=== PATIENT | male | born 1990 | race Caucasian/White ===

== ENCOUNTER 2025-01-23 00:28 | Inpatient (IN) | payer SELFPAY ==
[2025-01-23] VITALS (7 sets, daily range): BP systolic 111–150; BP diastolic 66–83; PULSE 89–119; RESP 16–18; TEMP 36.3–37.2; O2SAT 95–99; BMI 27.1
--- OUTSIDE RECORDS SUMMARY | 2025-01-23 00:36 | XMS_ITS | Encounter Summary ---
Author Organization [facility] Address [address] [place] [address] Care Team Providers Care Automation And Controls Supervisor Name Role Phone Alo Yost DO Primary Care Provider [phone] Encounter Details Date Type Department Care Team (Latest Contact Info) Description 02/14/2001 Outpatient Historical [facility] [address] [place] [address] Raoul Mcdaniel MD NO ADDRESS ON FILE ACUTE URI NOS (Primary Dx) Social History Tobacco Use Types Packs/Day Years Used Date Smoking Tobacco: Never Assessed Sex and Gender Information Value Date Recorded Sex Assigned at Not on file 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
--- OUTSIDE RECORDS SUMMARY | 2025-01-23 00:36 | XMS_ITS | Encounter Summary ---
Author Organization [facility] Address [address] [place] [address] Care Team Providers Care Residential Roofer Name Role Phone Alo oYst DO Primary Care Provider [phone] Encounter Details Date Type Department Care Team (Latest Contact Info) Description 07/02/1998 Outpatient Historical [facility] [address] [place] [address] Raoul Mcdaniel MD NO ADDRESS ON FILE Routine child health exam (Primary Dx) Social History Tobacco Use Types Packs/Day Years Used Date Smoking Tobacco: Never Assessed Sex and Gender Information Value Date Recorded Sex Assigned at Not on file 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
--- OUTSIDE RECORDS SUMMARY | 2025-01-23 00:36 | XMS_ITS | Encounter Summary ---
Author Organization [facility] Address [address] [place] [address] Care Team Providers Care Direct Sales Professional Name Role Phone Alo Yost DO Primary Care Provider [phone] Encounter Details Date Type Department Care Team (Latest Contact Info) Description 03/15/2001 Outpatient Historical [facility] [address] [place] [address] Raoul Mcdaniel MD NO ADDRESS ON FILE CONJUNCTIVITIS NOS (Primary Dx) Social History Tobacco Use Types Packs/Day Years Used Date Smoking Tobacco: Never Assessed Sex and Gender Information Value Date Recorded Sex Assigned at Not on file 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
--- OUTSIDE RECORDS SUMMARY | 2025-01-23 00:36 | XMS_ITS | Encounter Summary ---
Author Organization [facility] Address [address] [place] [address] Care Team Providers Care Inside Phone Sales Name Role Phone Alo Yost DO Primary Care Provider [phone] Encounter Details Date Type Department Care Team (Latest Contact Info) Description 03/16/1998 Outpatient Historical [facility] [place] [address] [place] [id number] Andrew Anthony MD NO ADDRESS ON FILE Acute nonsup otitis media (Primary Dx) Social History Tobacco Use Types Packs/Day Years Used Date Smoking Tobacco: Never Assessed Sex and Gender Information Value Date Recorded Sex Assigned at Not on file 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
--- OUTSIDE RECORDS SUMMARY | 2025-01-23 00:36 | XMS_ITS | Clinical Summary ---
Author Organization [facility] Address [address] [place] [address] Phone Care Team Providers Care Precision Agriculture Specialist Name Role Phone Alo Yost DO Primary Care Provider [phone] Allergies No known active allergies Medications busPIRone (BUSPAR) 10 mg tablet Take 1 Tablet (10 mg) by mouth 2 times daily. 60 Tablet 2 08/07/2015 Active escitalopram oxalate (LEXAPRO) 10 mg tablet Take 1 Tablet (10 mg) by mouth daily. 30 Tablet 1 08/07/2015 Active traZODone (DESYREL) 100 mg tablet Take 1 Tablet (100 mg) by mouth daily at bedtime. 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, severe 08/16/2015 Tobacco use 08/07/2015 History of substance abuse 08/07/2015 Immunizations Immunization Administration Dates Next Due (M-M-R II/PRIORIX)(12 MO UP) MEASLES, MUMPS AND RUBELLA VIRUS VACCINE, 0.5 ML IM/SUBCUT 05/23/1996,01/23/1992 Dt Dtp Dtap Vaccine 09/08/2006, 7,01/23/1992,1991,02/14/1991,1990 HIB, Unspecified Formulation 01/23/1992, 05/19/1991,02/14/1991,1990 Hepatitis B Vaccine 02/15/1997,07/25/1996,1996 IPV/OPV 05/23/1996, 2,02/14/1991,1990 Family History Medical History Relation Name Comments Healthy Father Healthy Maternal Grandfather Healthy Maternal Grandmother Healthy Mother Osteoporosis Paternal Grandfather Healthy Paternal Grandmother Healthy Sister Relation Name Status Comments Father Maternal Grandfather Maternal Grandmother Mother Paternal Grandfather Paternal Grandmother Sister Social History Tobacco Use Types Packs/Day Years Used Date Smoking Tobacco: Every Day Cigarettes 0.5 6 Smokeless Tobacco: Never Tobacco Cessation:Counseling Given: No Alcohol Use Standard Drinks/Week Comments Yes 0 (1 standard drink = 0.6 oz pur e alcohol) 1-2 beers month Sex and Gender Information Value Date Recorded Sex Assigned at Not on file 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 Gender Identity Not on file Sexual Orientation Not on file Last Filed Vital Signs Vital Sign Reading Time Taken Comments Blood Pressure 121/75 08/19/2015 10:00 AM CDT Pulse 70 08/19/2015 10:00 AM CDT Temperature 36.7 C (98 F) 08/19/2015 10:00 AM CDT Respiratory Rate 20 08/19/2015 10:0 0 AM CDT Oxygen Saturation 100% 08/19/2015 10: 00 AM CDT Inhaled Oxygen Concentration - - Weight 82.9 kg (182 lb 12.8 oz) 08/18/2015 8:00 AM CDT Height 182.9 cm (6') 08/15/2015 9:16 PM CDT Body Mass Index 24.79 08/15/2015 9:16 PM CDT Plan of Treatment Health Maintenance Due Date Last Done Comments DTAP/TDAP/TD VACCINES (7 - Tdap) 09/08/2016 09/08/2006, 05/23/1996, 01/23/1992, Additional history exists INFLUENZA VACCINE (#1) 2024 HEPATITIS B VACCINES Completed 02/15/1997, 07/25/1996, 05/23/1996 HPV VACCINES (No Doses Required) Completed Insurance CIG[employer] OPEN ACCESS PLUS CIGNA OPEN ACCESS PLUS CIGNA OPEN ACCESS PLUS Advance Directives For more information, please contact: [phone] * Full Code (Latest Code Status on File) Date Activated Date Inactivated Comments 08/15/2015 9:05 PM 08/19/2015 2:44 PM Care Teams Precision Agriculture Specialist Relationship Specialty Start Date End Date Alo Yost DO PCP - General Family Practice 07/09/15
--- OUTSIDE RECORDS SUMMARY | 2025-01-23 00:36 | XMS_ITS | Encounter Summary ---
Author Organization [facility] Address [address] [place] [address] Care Team Providers Care Cost Accounting Analyst Name Role Phone Alo Yost DO Primary Care Provider [phone] Encounter Details Date Type Department Care Team (Latest Contact Info) Description 07/15/1998 Outpatient Historical [facility] Ear, Nose and Throat 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
--- OUTSIDE RECORDS SUMMARY | 2025-01-23 00:36 | XMS_ITS | Encounter Summary ---
Author Organization [facility] Address [address] [place] [address] Care Team Providers Care Representative Government Relations Name Role Phone Alo Yost DO Primary Care Provider [phone] Encounter Details Date Type Department Care Team (Latest Contact Info) Description 11/22/1998 Outpatient Historical [facility] [address] [place] [address] Lavelle Saleh MD NO ADDRESS ON FILE Croup (Primary Dx) Social History Tobacco Use Types Packs/Day Years Used Date Smoking Tobacco: Never Assessed Sex and Gender Information Value Date Recorded Sex Assigned at Not on file 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
--- OUTSIDE RECORDS SUMMARY | 2025-01-23 00:36 | XMS_ITS | Encounter Summary ---
Author Organization [facility] Address [address] [place] [address] Care Team Providers Care Mixing And Molding Machine Operator Name Role Phone Alo Yost DO Primary Care Provider Encounter Details Date Type Department Care Team (Latest Contact Info) Description 08/15/1998 Outpatient Historical [facility] Head and Neck Surgery-[address] [place] [phone] [address] [place], [place] [address] Chronic tonsillitis and adenoiditis(474.02) (Primary Dx); Hypertrophy tonsils/adenoids Social History Tobacco Use Types Packs/Day Years Used Date Smoking Tobacco: Never Assessed Sex and Gender Information Value Date Recorded Sex Assigned at Not on file 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
--- OUTSIDE RECORDS SUMMARY | 2025-01-23 00:36 | XMS_ITS | Encounter Summary ---
Author Organization [facility] Address [address] [place] [address] Care Team Providers Care Tipple Boss Name Role Phone Alo Yost DO Primary Care Provider [phone] Encounter Details Date Type Department Care Team (Latest Contact Info) Description 05/01/2000 Outpatient Historical [facility] Imaging Services-[place] [address] [place] [address] Raoul Mcdaniel MD NO ADDRESS ON FILE Injury, other and unspecified, unspecified site (Primary Dx) Social History Tobacco Use Types Packs/Day Years Used Date Smoking Tobacco: Never Assessed Sex and Gender Information Value Date Recorded Sex Assigned at Not on file 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
--- OUTSIDE RECORDS SUMMARY | 2025-01-23 00:36 | XMS_ITS | Encounter Summary ---
Author Organization [facility] Address [address] [place] [address] Care Team Providers Care Motor And Chassis Inspector Name Role Phone Alo Yost DO Primary Care Provider [phone] Encounter Details Date Type Department Care Team (Latest Contact Info) Description 08/26/1998 Outpatient Historical [facility] Ear, Nose and Throat 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
--- OUTSIDE RECORDS SUMMARY | 2025-01-23 00:36 | XMS_ITS | Encounter Summary ---
Author Organization [facility] Address [address] [place] [address] Care Team Providers Care Ball Assembler Name Role Phone Alo Yost DO Primary Care Provider [phone] Encounter Details Date Type Department Care Team (Latest Contact Info) Description 11/02/2013 Ancillary Orders [facility] Imaging Services [address] [place] [address] [place] [address] [address] Dyspnea (Primary Dx); Chest congestion Social History Tobacco Use Types Packs/Day Years Used Date Smoking Tobacco: Never Assessed Sex and Gender Information Value Date Recorded Sex Assigned at Not on file 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 Exam: XR CHEST PA AND LATERAL Date/Time of Exam: Nov 02, 2013 05:25:52 PM Reason For Exam: Other dyspnea and respiratory abnormality. Findings: The heart size is normal. Calcified granulomas are noted. Small airspace opacity in the right upper lobe is noted concerning for a subtle infiltrate. The left lung is clear and there is no effusion or pneumothorax. Impression: 1. Subtle airspace opacity right upper lobe. Please see above. Justo - uploaded from [facility] - Narrative Procedure Note Constanza Gabriel MD - 11/03/2013 IMPRESSION IMPRESSION: See report below. Exam: XR CHEST PA AND LATERAL Date/Time of Exam: Nov 02, 2013 05:25:52 PM Reason For Exam: Other dyspnea and respiratory abnormality. Findings: The heart size is normal. Calcified granulomas are noted. Small airspace opacity in the right upper lobe is noted concerning for a subtle infiltrate. The left lung is clear and there is no effusion or pneumothorax. Impression: 1. Subtle airspace opacity right upper lobe. Please see above. Justo - uploaded from [facility] - Kamaljit Aquino MD DIAGNOSTIC IMAGING ORDERAB LES Final Result documented in this encounter Visit Diagnoses Diagnosis Dyspnea- Primary Other dyspnea and respiratory abnormality Chest congestion Other symptoms involving respiratory system and chest Dyspnea Other dyspnea and respiratory abnormality Chest congestion Other symptoms involving respiratory system and chest documented in this encounter Care Teams Ball Assembler Relationship Specialty Start Date End Date Alo Yost DO PCP - General Family Practice 07/09/15 documented as of this encounter
--- OUTSIDE RECORDS SUMMARY | 2025-01-23 00:36 | XMS_ITS | Encounter Summary ---
Author Organization [facility] Address [address] [place] [address] Care Team Providers Care Sales Commissions Analyst Name Role Phone Alo Yost DO Primary Care Provider [phone] Encounter Details Date Type Department Care Team (Latest Contact Info) Description 05/01/2000 Outpatient Historical [facility] [place] [address] [place] [address] Raoul Mcdaniel MD NO ADDRESS ON FILE Cellulitis and abscess of upper arm and forearm (Primary Dx) Social History Tobacco Use Types Packs/Day Years Used Date Smoking Tobacco: Never Assessed Sex and Gender Information Value Date Recorded Sex Assigned at Not on file 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
--- OUTSIDE RECORDS SUMMARY | 2025-01-23 00:36 | XMS_ITS | Encounter Summary ---
Author Organization [facility] Address [address] [place] [address] Care Team Providers Care Curing Press Operator Name Role Phone Alo Yost DO Primary Care Provider [phone] Encounter Details Date Type Department Care Team (Latest Contact Info) Description 11/07/2013 Ancillary Orders [facility] Pre-Registration [place] CALL TO MAKE APPOINTMENT ONLY [address] [place] [address] Kamaljit Aquino MD [address] [address] Pneumonia (Primary Dx) Social History Tobacco Use Types Packs/Day Years Used Date Smoking Tobacco: Never Assessed Sex and Gender Information Value Date Recorded Sex Assigned at Not on file 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
--- OUTSIDE RECORDS SUMMARY | 2025-01-23 00:36 | XMS_ITS | Encounter Summary ---
Author Organization [facility] Address [address] [place] [address] Care Team Providers Care Mathematics Education Professor Name Role Phone Alo Yost DO Primary Care Provider [phone] Encounter Details Date Type Department Care Team (Latest Contact Info) Description 11/28/2013 Ancillary Orders [facility] Pre-Registration [place] CALL TO MAKE APPOINTMENT ONLY [address] [place] [address] [place] [address] [address] Chronic cough (Primary Dx) Social History Tobacco Use Types Packs/Day Years Used Date Smoking Tobacco: Never Assessed Sex and Gender Information Value Date Recorded Sex Assigned at Not on file 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 Exam: XR CHEST PA AND LATERAL Date/Time of Exam: Dec 29, 2013 01:49:21 PM Reason For Exam: Cough. The heart and mediastinum are normal in size and contour. The lungs are essentially clear without evidence of infiltrates, nodules, or effusions. The bones and other structures visualized are largely unremarkable. The study shows clearing of the right upper lobe opacity since November 02. Impression: No active disease. Narrative Procedure Note Antony Singleton MD - 12/29/2013 IMPRESSION IMPRESSION: See report below. Exam: XR CHEST PA AND LATERAL Date/Time of Exam: Dec 29, 2013 01:49:21 PM Reason For Exam: Cough. The heart and mediastinum are normal in size and contour. The lungs are essentially clear without evidence of infiltrates, nodules, or effusions. The bones and other structures visualized are largely unremarkable. The study shows clearing of the right upper lobe opacity since November 02. Impression: No active disease. us Kamaljit Aquino MD DIAGNOSTIC IMAGING ORDERAB LES Final Result documented in this encounter Visit Diagnoses Diagnosis Chronic cough- Primary Cough Chronic cough Cough documented in this encounter Care Teams Mathematics Education Professor Relationship Specialty Start Date End Date Alo Yost DO PCP - General Family Practice 07/09/15 documented as of this encounter
--- OUTSIDE RECORDS SUMMARY | 2025-01-23 00:36 | XMS_ITS | Encounter Summary ---
Author Organization [facility] Address [address] [place] [address] Care Team Providers Care Executive Chairman Name Role Phone Alo Yost DO Primary Care Provider [phone] Encounter Details Date Type Department Care Team (Latest Contact Info) Description 02/11/2000 Outpatient Historical [facility] [address] [place] [address] Raoul Mcdaniel MD NO ADDRESS ON FILE Acute sinusitis, unspecified (Primary Dx) Social History Tobacco Use Types Packs/Day Years Used Date Smoking Tobacco: Never Assessed Sex and Gender Information Value Date Recorded Sex Assigned at Not on file 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
--- OUTSIDE RECORDS SUMMARY | 2025-01-23 00:36 | XMS_ITS | Encounter Summary ---
Author Organization [facility] Address [address] [place] [address] Care Team Providers Care Cinder Snapper Name Role Phone Alo Yost DO Primary Care Provider [phone] Encounter Details Date Type Department Care Team (Latest Contact Info) Description 06/25/1998 Outpatient Historical [facility] [address] [place] [address] Raoul Mcdaniel MD NO ADDRESS ON FILE Streptococcal sore throat (Primary Dx) Social History Tobacco Use Types Packs/Day Years Used Date Smoking Tobacco: Never Assessed Sex and Gender Information Value Date Recorded Sex Assigned at Not on file 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
--- OUTSIDE RECORDS SUMMARY | 2025-01-23 00:36 | XMS_ITS | Encounter Summary ---
Author Organization [facility] Address [address] [place] [address] Care Team Providers Care Pet Sitting Name Role Phone Alo Yost DO Primary Care Provider [phone] Encounter Details Date Type Department Care Team (Latest Contact Info) Description 08/14/[address] [facility] 

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
[2025-01-23] MEDS: LORazepam 2 mg/mL INJ 1 mL IM (01:07)
[2025-01-23] MEDS: diphenhydrAMINE 50 mg/mL SDV 1mL IM (01:07)
[2025-01-23 01:19] LABS: Hematocrit 47.1 % (37-53); Hemoglobin 16.30 g/dL (11.27-16.99); Mean Corpuscular HGB Conc 34.6 g/dL (30-55); Mean Corpuscular Hemoglobin 29.0 pg (27-33); Mean Corpuscular Volume 83.8 fl (82-101); Nucleated Red Blood Cells % 0 %; Platelet Count 315 10^3/cmm (157-399); Red Blood Count 5.62 10^6/uL (3.85-5.65); White Blood Count 19.25 10^3/uL (3.29-11.43)
[2025-01-23 01:29] LABS: INR 1.02 (0.8-1.2); Prothrombin Time 14.10 SECONDS (12.1-14.9)
--- NOTE | 2025-01-23 01:34 | ECG_ITS ---
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 Measurements Intervals Sheridan Rate: 108 P: 69 MA: 121 QRS: 74 QRSD: 88 T: 52 QT: 340 QTc: 458 Interpretive Statements SINUS TACHYCARDIA ABNORMAL RHYTHM ECG No previous ECG available for comparison Electronically Signed On 01-23-2025 21:25:17 REWINDER by Gretchen Walls M.D. [email or web address]
[2025-01-23 01:40] LABS: Troponin(5th) Baseline 12 ng/L (0-15)
[2025-01-23 01:50] LABS: Alanine Aminotransferase 150 U/L (0-41); Albumin Level 4.7 g/dL (3.5-5.2); Alkaline Phosphatase 74 U/L (40-130); Anion Gap 18.7 (5-19); Aspartate Amino Transferase 216 U/L (0-40); Blood Urea Nitrogen 14 mg/dL (6-20); Calcium 9.5 mg/dL (8.5-10.5); Carbon Dioxide 23 mmol/L (22-29); Chloride 98 mmol/L (98-107); Globulin 2.9 g/dL (1.3-4.6); Glucose 133 mg/dL (65-115); Osmolality Calculated 284 mOsm/kg (285-295); Potassium 3.7 mmol/L (3.5-5.1); Sodium 136 mmol/L (136-145); Thyroid Stimulating Hormone 1.49 uIU/mL (0.27-4.20); Total Protein 7.6 g/dL (6.6-8.7)
[2025-01-23 01:51] LABS: Acetaminophen < 5.0 ug/mL (10-30); Alcohol Level < 10 mg/dL (0-10); Salicylate < 0.3 mg/dL (3-10)
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
--- NOTE | 2025-01-23 03:58 | PC.NURSE ---
96 HH Pt served with copy of 96 HH by this RN and security.
--- NOTE | 2025-01-23 09:50 | PC.OT ---
OT EVALUATION ATTEMPTED IN A.M. PATIENT SLEEPING SOUNDLY AND DOES NOT AWAKEN
--- NOTE | 2025-01-23 13:21 | PC.NURSE ---
No known home medications found.
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
[2025-01-24 06:00] VITALS: BP 148/90; PULSE 87; RESP 16; TEMP 36.5; O2SAT 98
[2025-01-24 14:00] VITALS: BP 126/79; PULSE 84; RESP 18; TEMP 36.9; O2SAT 100
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
[2025-01-24 20:32] VITALS: BP 150/98; PULSE 90; RESP 16; TEMP 36.8; O2SAT 97
[2025-01-24] MEDS: neomycin-poly-bacitracin oint 28 gm 1 APPLIC TOPICAL (21:08)
[2025-01-25 06:00] VITALS: BP 131/88; PULSE 71; RESP 16; TEMP 37.1; O2SAT 98
[2025-01-25 14:00] VITALS: BP 143/95; PULSE 84; RESP 17; TEMP 36.5; O2SAT 100
--- NOTE | 2025-01-25 14:29 | PC.NURSE ---
Dr. Hartley gave a v/o for pt to have a oral B52. Order has been placed. See MAR and orders.
--- NOTE | 2025-01-25 16:21 | PC.NURSE ---
Pt was standing at nurses station when this nurse noticed that he had 4 neno in the the back on his scalp. Physician was notified and a 1:[address] into place.
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
[2025-01-25 20:23] VITALS: BP 131/74; PULSE 82; RESP 16; TEMP 37; O2SAT 98
[2025-01-25] MEDS: neomycin-poly-bacitracin oint 28 gm 1 APPLIC TOPICAL (21:03)
[2025-01-26 06:00] VITALS: BP 138/87; PULSE 79; RESP 18; TEMP 36.6; O2SAT 97
[2025-01-26] MEDS: neomycin-poly-bacitracin oint 28 gm 1 APPLIC TOPICAL ×2 (09:04→18:19)
[2025-01-26 14:00] VITALS: BP 119/77; PULSE 86; RESP 15; TEMP 36.8; O2SAT 98
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
--- NOTE | 2025-01-26 17:37 | PC.NURSE ---
Patient has mostly isolated to his room this shift. He has had c/o generalized neck pain and received oral analgesics and a muscle relaxant for this. He had mild and moderate anxiety and received anxiolytics. Patient has abrasions to face and sutures to occipital area on head that are without redness,warmth and drainage. He has refused a shower today. His appetite is good. He denies SI/HI/AVH.
[2025-01-26 18:03] LABS: Hematocrit 43.6 % (37-53); Hemoglobin 14.80 g/dL (11.27-16.99); Mean Corpuscular HGB Conc 33.9 g/dL (30-55); Mean Corpuscular Hemoglobin 29.0 pg (27-33); Mean Corpuscular Volume 85.3 fl (82-101); Nucleated Red Blood Cells % 0 %; Platelet Count 216 10^3/cmm (157-399); Red Blood Count 5.11 10^6/uL (3.85-5.65); White Blood Count 6.50 10^3/uL (3.29-11.43)
[2025-01-26 18:05] LABS: PCP Screen Urine Negative (Negative)
[2025-01-26 19:33] VITALS: BP 102/57; PULSE 69; RESP 18; TEMP 36.7; O2SAT 98
[2025-01-26 19:58] VITALS: BP 111/67
[2025-01-27 06:00] VITALS: BP 131/77; PULSE 82; RESP 17; TEMP 37.1; O2SAT 96
[2025-01-27] MEDS: neomycin-poly-bacitracin oint 28 gm 1 APPLIC TOPICAL ×2 (10:07→17:50)
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
[2025-01-27 13:47] VITALS: BP 112/66; PULSE 82; RESP 18; TEMP 36.9; O2SAT 98
[2025-01-27 19:41] VITALS: BMI 27.0
[2025-01-27 20:09] VITALS: BP 132/80; PULSE 83; RESP 18; TEMP 36.9; O2SAT 98
[2025-01-28 06:00] VITALS: RESP 16
--- NOTE | 2025-01-28 06:32 | PC.NURSE ---
vitals not done per order, pt asleep, nurse aware, resp 16
[2025-01-28] MEDS: neomycin-poly-bacitracin oint 28 gm 1 APPLIC TOPICAL ×2 (07:32→18:18)
[2025-01-28 12:40] VITALS: BP 127/86; PULSE 90; RESP 16; TEMP 36.8; O2SAT 95
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
[2025-01-28 19:59] VITALS: BP 145/88; PULSE 73; RESP 18; TEMP 36.9; O2SAT 100
[2025-01-29 06:00] VITALS: BP 147/85; PULSE 74; RESP 18; TEMP 36.7; O2SAT 97
[2025-01-29 12:54] VITALS: BP 119/74; PULSE 67; RESP 16; TEMP 36.9; O2SAT 99
--- NOTE | 2025-01-29 14:07 | PC.NURSE ---
Patient went to court at 1400 on 01/29/2025
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
[2025-01-29 19:54] VITALS: BP 147/96; PULSE 76; RESP 18; TEMP 37.1; O2SAT 99
[2025-01-30 05:46] VITALS: BP 136/79; PULSE 61; RESP 16; TEMP 36.5; O2SAT 98
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
[2025-01-30 13:49] LABS: Alanine Aminotransferase 128 U/L (0-41); Albumin Level 4.1 g/dL (3.5-5.2); Alkaline Phosphatase 66 U/L (40-130); Aspartate Amino Transferase 91 U/L (0-40); Globulin 2.2 g/dL (1.3-4.6); Total Protein 6.3 g/dL (6.6-8.7)
--- NOTE | 2025-01-30 13:53 | PC.NURSE ---
Dr. Hartley spoke with Dr. Cowan and he informed him that the neno will need to be removed on day 10.
[2025-01-30 14:00] VITALS: BP 138/95; PULSE 80; RESP 16; TEMP 36.9; O2SAT 97
[2025-01-30 14:07] LABS: Hepatitis A Antibody IgM Non-Reactive (Nonreactive); Hepatitis B Surface Antigen Non-Reactive (Nonreactive)
[2025-01-30 19:44] VITALS: BP 139/94; PULSE 75; RESP 17; TEMP 36.4; O2SAT 100
--- NOTE | 2025-01-31 06:26 | PC.NURSE ---
vitals vs not collected resp 16 pt laying in bed with both eyes closed nurse notified
[2025-01-31 14:00] VITALS: BP 129/89; PULSE 106; RESP 16; TEMP 36.6; O2SAT 98
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
[2025-01-31 16:09] LABS: HEP C RNA Viral Load Quant 7.36 Log IU/mL (NOT DETECTED)
[2025-01-31 20:10] VITALS: BP 130/80; PULSE 103; RESP 19; TEMP 36.8; O2SAT 94
[2025-02-01 06:00] VITALS: RESP 14
--- NOTE | 2025-02-01 06:33 | PC.NURSE ---
pt asleep, vitals not done per order, nurse aware, resp 14
--- NOTE | 2025-02-01 07:36 | PC.NURSE ---
0725 5 neno removed per order, no issues observed, tolerated well
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
[2025-02-01] MEDS: neomycin-poly-bacitracin oint 28 gm 1 APPLIC TOPICAL ×2 (09:57→18:56)
[2025-02-01 14:00] VITALS: BP 116/75; PULSE 82; RESP 16; TEMP 36.8; O2SAT 98
[2025-02-01 20:19] VITALS: BP 131/91; PULSE 88; RESP 16; TEMP 36.6; O2SAT 98
--- NOTE | 2025-02-02 06:22 | PC.NURSE ---
vitals vs not collected pt laying in bed with both eyes closed resp 17 nurse notified
[2025-02-02] MEDS: neomycin-poly-bacitracin oint 28 gm 1 APPLIC TOPICAL ×2 (08:04→17:12)
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
[2025-02-02 14:00] VITALS: BP 126/84; PULSE 118; RESP 18; TEMP 36.7; O2SAT 99
[2025-02-02 20:41] VITALS: BP 122/81; PULSE 81; RESP 17; TEMP 36.8; O2SAT 97
[2025-02-03 06:00] VITALS: RESP 16
--- NOTE | 2025-02-03 06:34 | PC.NURSE ---
vitals vs not collected, pt asleep, nurse aware, resp16
[2025-02-03] MEDS: neomycin-poly-bacitracin oint 28 gm 1 APPLIC TOPICAL ×2 (08:39→17:17)
[2025-02-03 14:00] VITALS: BP 124/80; PULSE 94; RESP 17; TEMP 36.6; O2SAT 98
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
[2025-02-03 20:42] VITALS: BP 117/75; PULSE 83; RESP 18; TEMP 36.9; O2SAT 100
[2025-02-04 06:00] VITALS: RESP 18; BMI 26.3
--- NOTE | 2025-02-04 06:44 | PC.NURSE ---
vs not collected, pt asleep, nurse aware, resp 18
[2025-02-04] MEDS: neomycin-poly-bacitracin oint 28 gm 1 APPLIC TOPICAL (08:52)
[2025-02-04 13:29] VITALS: BP 117/75; PULSE 83; RESP 18; TEMP 36.9; O2SAT 100
[2025-02-04 13:31] VITALS: BP 135/93; PULSE 92; RESP 17; TEMP 36.8; O2SAT 94
--- NOTE | 2025-02-04 13:53 | P.NPUDS_ITS ---
Diagnoses at Discharge Discharge Diagnosis 1. Unspecified psychosis: 2. Depression, unspecified: 3. Suicidal ideation: Reason for Visit Reason for Visit: MHE Involuntary Hold Information Hold Status: Legal Status: 96 Hour Hold Date/Time Hold Expires: 02/19/25 Mental Status Exam MSE Comments: The patient is a casually dressed male who was lying in bed with clear closed laceration above his eye and dried blood around his head. He appeared in no acute distress. He was alert and oriented x 3. His gait was normal. His hygiene was improving. There was no evidence of any abnormal involuntary motor movements, tics, or tremors appreciated. Speech was limited in productivity but normalizing in rate and normal in volume. His mood was described as okay. His affect was less restricted today. His thought process was linear and more logical today. His thought content revealed no active suicidal or homicidal ideation. There was no evidence of any overt delusions. There was no overt paranoia. He did not appear to be responding to internal stimuli. His insight was improving and judgment is improving. His impulse control appeared to be better. Discharge Data Studies Completed and Pending: Completed Studies During Hospitalization Category Date Time Status CT cervical spin wo con* [id number] Stat Cat Scan 01/23/25 00:[address] head wo con* [id number] Stat Cat Scan 01/23/25 00:49 Completed Radiology Impressions Cervical Spine CT 01/23/25 00:49 IMPRESSION: 1. No acute cervical spine fracture or subluxation. 2. Multilevel degenerative changes. Head CT 01/23/25 00:49 IMPRESSION: 1. Right occipital scalp laceration. 2. No acute intracranial hemorrhage. N o midline shift or mass effect. Laboratory Results WBC 6.50 10^3/uL (3.2 9-11.43) 01/26/25 17:56 RBC 5.11 10^6/uL (3.8 5-5.65) 01/26/25 17:56 Hgb 14.80 g/dL (11.27 -16.99) 01/26/25 17:56 Hct 43.6 % (37-53) 01/26/25 17:56 MCV 85.3 fl (82-101) 01/26/25 17:56 MCH 29.0 pg (27-33) 01/26/25 17:56 MCHC 33.9 g/dL (30-55) 01/26/25 17:56 RDW 13.0 % (12.1-15.1 ) 01/26/25 17:56 Plt Count 216 10^3/cmm (157 -399) 01/26/25 17:56 MPV 9.8 fL (7.4-10.4) 01/26/25 17:56 Neut % (Auto) 54.3 % 01/26/25 17:56 Lymph % (Auto) 25.4 % 01/26/25 17:56 Waller % (Auto) 13.4 % 01/26/25 17:56 Eos % (Auto) 5.8 % 01/26/25 17:56 Baso % (Auto) 0.8 % 01/26/25 17:56 Neut # (Auto) 3.53 10^3/uL (1.8 -7.7) 01/26/25 17:56 Lymph # (Auto) 1.7 10^3/uL (0.8- 4.8) 01/26/25 17:56 Waller # (Auto) 0.9 10^3/uL (0.2- 0.9) 01/26/25 17:56 Eos # (Auto) 0.4 10^3/uL (0.0- 0.8) 01/26/25 17:56 Baso # (Auto) 0.1 10^3/uL (0.0- 0.1) 01/26/25 17:56 Nucleated RBC % (a uto) 0 % 01/26/25 17:56 Nucleated RBCs # 0.0 /100WBC 01/26/25 17:56 PT 14.10 SECONDS (12 .1-14.9) 01/23/25 01:07 INR 1.02 (0.8-1.2) 01/23/25 01:07 Sodium 136 mmol/L (136-1 45) 01/23/25 01:07 Potassium 3.7 mmol/L (3.5-5 .1) 01/23/25 01:07 Chloride 98 mmol/L (98-107 ) 01/23/25 01:07 Carbon Dioxide 23 mmol/L (22-29) 01/23/25 01:07 Anion Gap 18.7 (5-19) 01/23/25 01:07 BUN 14 mg/dL (6-20) 01/23/25 01:07 Creatinine 1.0 mg/dL (0.7-1. 2) 01/23/25 01:07 GFR Calculation 85.5 mL/min (90-1 30) L 01/23/25 01:07 Glucose 133 mg/dL (65-115 ) H 01/23/25 01:07 Calculated Osmolal ity 284 mOsm/kg (285- 295) L 01/23/25 01:07 Calcium 9.5 mg/dL (8.5-10 .5) 01/23/25 01:07 Total Bilirubin 0.3 mg/dL (0.15-1 .2) 01/30/25 13:16 Direct Bilirubin 0.18 mg/dL (0.00- 0.30) 01/30/25 13:16 AST 91 U/L (0-40) H 01/30/25 13:16 ALT 128 U/L (0-41) H 01/30/25 13:16 Alkaline Phosphata se 66 U/L (40-130) 01/30/25 13:16 Troponin T Baselin e 12 ng/L (0-15) 01/23/25 01:07 Troponin T 60 Jerri te 15.83 ng/L (0-15) H 01/23/25 03:29 Delta Troponin T 3.83 ABS# (0-10) 01/23/25 03:29 Total Protein 6.3 g/dL (6.6-8.7 ) L 01/30/25 13:16 Albumin 4.1 g/dL (3.5-5.2 ) 01/30/25 13:16 Globulin 2.2 g/dL (1.3-4.6 ) 01/30/25 13:16 TSH 1.49 uIU/mL (0.27 -4.20) 01/23/25 01:07 Salicylates < 0.3 mg/dL (3-10 ) L 01/23/25 01:07 Urine Opiates Scre en Negative ng/mL (N egative) 01/26/25 16:57 Acetaminophen < 5.0 ug/mL (10-3 0) L 01/23/25 01:07 Ur Barbiturates Sc reen Negative ng/mL (N egative) 01/26/25 16:57 Ur Phencyclidine S crn Negative ng/mL (N egative) 01/26/25 16:57 Ur Amphetamines Sc reen Positive ng/mL (N egative) H 01/26/25 16:57 U Benzodiazepines Scrn Positive ng/mL (N egative) H 01/26/25 16:57 Urine Cocaine Scre en Negative ng/mL (N egative) 01/26/25 16:57 U Marijuana (THC) Screen Negative ng/mL (N egative) 01/26/25 16:57 Ethyl Alcohol < 10 mg/dL (0-10) 01/23/25 01:07 Hepatitis A IgM Ab Non-reactive (No nreactive) 01/30/25 13:16 Hep Bs Antigen Non-reactive (No nreactive) 01/30/25 13:16 Hep Bs Antibody 18.7 (11.5-1000) 01/30/25 13:16 Hep B Core Total A b Non-reactive (No nreactive) 01/30/25 13:16 Hepatitis C Antibo dy Reactive (Nonrea ctive) H 01/30/25 13:16 HCV RNA (PCR) IUs/ ml 7.36 Log IU/mL (N OT DETECTED) H 01/30/25 14:36 HCV RNA (PCR) IU l [id number] IU/mL (N OT DETECTED) H 01/30/25 14:36 Vitals: Last Vital Signs Temp 98.2 F 02/04/25 13:31 Pulse 92 02/04/25 13:31 Resp 17 02/04/25 13:31 BP 135/93 02/04/25 13:31 Pulse Ox 94 02/04/25 13:31 O2 Del Method Room Air 02/04/25 13:31 Discharge Plan Discharge Patient Disposition: Home Condition: Stable Prescriptions: New trazodone 50 mg Tablet 50 mg PO BEDTIME PRN (Reason: Sleep) 30 Days Qty: 30 1RF tizanidine 4 mg Tablet 4 mg PO TID PRN (Reason: Spasms) 15 Days Qty: 45 1RF olanzapine 5 mg Tablet,Disintegrating 5 mg PO DAILY PRN (Reason: Agitation/Psychosis) 30 Days Qty: 30 1RF hydroxyzine pamoate 25 mg Capsule 50 mg PO Q6H PRN (Reason: Anxiety) 30 Days Qty: 120 1RF aripiprazole 10 mg Tablet 10 mg PO DAILY 30 Days Qty: 30 1RF Discharge Order = DC NOW: Discharge Order (Routine); Ordered 02/04/25 Ordered By: Jose Ramirez Referrals: Louise Bonilla [Other] Referral Note: Interview on Wednesday02/04/25 at 6:45 pm. [facility] [Other] - 4-7 days Referral Note: Walk in assessment from Wednesday- 7 a.m.-7 p.m., Wednesday 7:30 a.m. - 5:00 p.m. with last walk-in appointment at 1.5 hours before closing. Louise Bonilla [Other] Referral Note: Interview at 5:00 pm on Wednesday02/04/25. Discharge Diet: Regular Discharge Activity: Resume usual activity Patient Instructions: Aripiprazole (By mouth), Opioid Safety, Patient Portal & Mili Instructions Discharge Attestations NPU Time Spent in Discharge Care*: less than 30 min Specific Discharge Activities: Specific discharge activities: educating patient, educating and/or supporting family/caregiver, discussing with continuous pillowcase cutter/social workers/dc planners, documenting/other paperwork and evaluating patient/reviewing data Coding Level of Care Code Acute Code for Chg Fwd Diagnoses Unspecified psychosis F29 Depression, unspecified F32.A Suicidal ideation R45.851
== END 2025-02-04 13:58 | disposition home or self-care (01) | DRG 885 ==
LOC: ER 02:08 → NP 05:52
PROVIDERS: Admitting Provider Psychiatry & Neurology Psychiatry; Emergency Provider Student in an Organized Health Care Education/Training Program; Visit Provider Psychiatry & Neurology Psychiatry
DX: F29 Unspecified psychosis not due to a substance or known physiological condition (principal); R45.851 Suicidal ideations; F32.A Depression, unspecified; S01.01XA Laceration without foreign body of scalp, initial encounter; F15.10 Other stimulant abuse, uncomplicated
CPT/HCPCS: 36415; 70450; 72125; 80048; 80076; 80306; 80307; 84443; 84484; 85025; 85610; 86705; 86706; 86709; 86803; 87340; 87522; 93005; 96372; 97150; 97165; 99285; J1200; J2060; J3486; J9999; Q0163